=== PATIENT | female | born 1975 | race American Indian/Alaskan Native ===

== ENCOUNTER 2021-12-18 19:49 | Emergency (ER) | payer SELFPAY ==
[2021-12-18 20:31] VITALS: BP 140/74
--- NOTE | 2021-12-19 00:23 | Emergency Department Report ---
ED General Adult HPI - General Chief complaint: Medical Clearance Stated complaint: KNOT IN BREAST Time Seen by Provider: 12/18/21 23:43 Source: patient Mode of arrival: Ambulatory Limitations: No Limitations - History of Present Illness Initial comments: 46-year-old F [place] female no significant past medical history presents emerge department complaining of a 2-day history of spontaneous pain to the left breast associated with a knot swelling and some redness and redness without any nipple discharge or noted trauma. She reports no fever, chills, sweats. No nausea, no no vomiting, no chest pain, no palpitations no pre-existing history of any breast issues no family history of any breast issues has been trying ibuprofen [id number] which minimally helps the pain but seeks further evaluation and treatment options Quality: aching, dull Consistency: constant Improves with: none Worsens with: movement Associated Symptoms: denies other symptoms Treatments Prior to Arrival: none - Related Data Previous Rx's Medication Instructions Recorded Last Taken Type Dicloxacillin Sodium 500 mg PO QID #40 cap 12/19/21 Unknown Rx Ketorolac [Toradol] 10 mg PO Q6H PRN #20 12/19/21 Unknown Rx Allergies Allergy/AdvReac Type Severity Reaction Status Date / Time No Known Allergies Allergy Unverified 12/18/21 20:30 ED Review of Systems ROS: Stated complaint: KNOT IN BREAST Other details as noted in HPI Comment: All other systems reviewed and negative ED Past Medical Hx - Past Medical History Previous Medical History?: No - Surgical History Past Surgical History?: No - Medications Home Medications: Home Medications Medication Instructions Recorded Confirmed Last Taken Type Dicloxacillin Sodium 500 mg PO QID #40 cap 12/19/21 Unknown Rx Ketorolac [Toradol] 10 mg PO Q6H PRN #20 12/19/21 Unknown Rx ED Physical Exam - General Limitations: No Limitations General appearance: alert, in no apparent distress - Head Head exam: Present: atraumatic, normocephalic - Eye Eye exam: Present: normal appearance, PERRL, EOMI Pupils: Present: normal accommodation - ENT ENT exam: Present: normal exam, normal orophraynx, mucous membranes moist, TM's normal bilaterally - Neck Neck exam: Present: normal inspection - Respiratory Respiratory exam: Present: normal lung sounds bilaterally, chest wall tenderness, other (Breast exam was accompanied by machine [place]. Right breast of normal variant no tenderness to the tail of [place] no lymphadenopathy no epitrochlear lymph nodes no orange peeling no swelling no masses appreciated. Left breast there is no lymphadenopathy to the epitrochlear lymph nodes or tail of ). Absent: respiratory distress - Cardiovascular Cardiovascular Exam: Present: regular rate, normal rhythm. Absent: systolic murmur, diastolic murmur, rubs, gallop - GI/Abdominal GI/Abdominal exam: Present: soft, normal bowel sounds - Extremities Exam Extremities exam: Present: normal inspection, tenderness - Back Exam Back exam: Present: normal inspection - Neurological Exam Neurological exam: Present: alert, oriented X3 - Psychiatric Psychiatric exam: Present: normal affect, normal mood - Skin Skin exam: Present: warm, dry, intact, erythema. Absent: normal color, rash - Other Other exam information: Breast exam continue Left breast normal tissue to the entire breast with exception of around the areolar region where there appears to be some swelling to the mammary glands no hard nodules appreciated per redness is noted around the mammograms. No nipple discharge with expression or passive ED Course Vital Signs 12/18/21 20:30 Temperature 98.4 F Pulse Rate 92 H Respiratory 18 Rate Blood Pressure 140/74 O2 Sat by Pulse 99 Oximetry Critical care attestation.: If time is entered above; I have spent that time in minutes in the direct care of this critically ill patient, excluding procedure time. ED Disposition Clinical Impression: Mastitis Disposition: 01 HOME / SELF CARE / HOMELESS Is pt being admited?: No Does the pt Need Aspirin: No Condition: Stable Instructions: Mastitis Additional Instructions: The patient to follow-up with primary care provider listed provider as we discussed to reevaluate your infectious process and schedule a mammogram as we discussed Prescriptions: Dicloxacillin Sodium 500 mg PO QID #40 cap Ketorolac [Toradol] 10 mg PO Q6H PRN #20 PRN Reason: Pain Referrals: KEVIN VO MD [Primary Care Provider] - 3-5 Days [facility] [Provider Group] - 3-5 Days NATTY VALENTINO MD [Staff Physician] - 3-5 Days
== END 2021-12-19 01:18 | disposition home or self-care (01) ==
LOC: ED 19:49
DX: N61.0 Mastitis without abscess (principal)
CPT/HCPCS: 99282